=== PATIENT | female | born 1960 | race Caucasian/White ===

== ENCOUNTER 2024-05-12 09:56 | Day surgery (SDC) | payer OTHER ==
[2024-05-12] MEDS ORDERED: MIDAZOLAM 5 MG/5 ML VIAL ONE (10:59)
[2024-05-12] MEDS ORDERED: fentaNYL citrate 0.05 MG/ML VIAL ONE (10:59)
[2024-05-12] MEDS: MIDAZOLAM 5 MG/5 ML VIAL IV ONE (11:04)
[2024-05-12] MEDS: fentaNYL citrate 0.05 MG/ML VIAL IVP ONE (11:05)
== END 2024-05-12 13:08 | disposition home or self-care (01) ==
LOC: MDS 09:56 → MMU 09:56 → MDS 13:08
PROVIDERS: ATTEND Internal Medicine Gastroenterology
DX: R13.10 Dysphagia, unspecified (principal); K20.90 Esophagitis, unspecified without bleeding
CPT/HCPCS: 43239; J2250; J3010; 88305